=== PATIENT | male | born 1960 | race American Indian/Alaskan Native ===

== ENCOUNTER 2020-02-09 10:05 | Emergency (ER) | payer OTHER ==
--- NOTE | 2020-02-09 11:18 | Event Note ---
ED Screening Note ED Screening Note: dizziness, room spinning began this morning had nausea states broke out in cold sweat no CP worse when lay down no fever PMHx none allergy: penicillin non smoker, non drinker This initial assessment/diagnostic orders/clinical plan/treatment(s) is/are subject to change based on patients health status, clinical progression and re- assessment by fellow clinical providers in the ED. Further treatment and workup at subsequent clinical providers discretion. Patient/guardian urged not to elope from the ED as their condition may be serious if not clinically assessed and managed. Initial orders include: labs, EKG, CT head
[2020-02-09 11:43] LABS: Basophils % (Auto) 0.1 % (0.0-1.8); Eosinophils % (Auto) 0.4 % (0.0-4.3); Hematocrit 45.1 % (35.5-45.6); Hemoglobin 15.1 gm/dl (11.8-15.2); Lymphocytes # (Auto) 1.6 K/mm3 (1.2-5.4); Lymphocytes % (Auto) 19.1 % (13.4-35.0); Mean Corpuscular HGB Conc 34 % (32-34); Mean Corpuscular Volume 92 fl (84-94); Monocytes # (Auto) 0.7 K/mm3 (0.0-0.8); Monocytes % (Auto) 8.3 % (0.0-7.3); Platelet Count 262 K/mm3 (140-440); Red Blood Count 4.88 M/mm3 (3.65-5.03); Red Cell Distribution Width 12.6 % (13.2-15.2)
[2020-02-09] MEDS ORDERED: SODIUM CHLORIDE 0.9% 1000 ML 1,000 ML IV ONE (12:06)
[2020-02-09 12:11] LABS: Alanine Aminotransferase 15 units/L (7-56); Albumin 4.1 g/dL (3.9-5); BUN/Creatinine Ratio 11; Blood Urea Nitrogen 14 mg/dL (9-20); Calcium 9.7 mg/dL (8.4-10.2); Hemolysis Index 14
--- NOTE | 2020-02-09 12:11 | Emergency Department Report ---
ED Dizziness HPI - General Chief Complaint: Dizziness Stated Complaint: COLD SWEATS Time Seen by Provider: 02/09/20 11:16 Source: patient Mode of arrival: Ambulatory Limitations: No Limitations - History of Present Illness Initial Comments: 59-year-old male with no significant past medical history presents to the ER today complaining of feeling dizzy. Patient states that while laying in the bed this morning, he turned over and suddenly started feeling dizzy. He states that he felt that the room was spinning. He states that this happened twice while laying in the bed. Patient states that he then got up and sat on the side of the bed, when he did that his dizziness get better, but then when he started walking, he felt nauseous and did vomit once. And he also had one episode of diarrhea. He states that his stomach felt "bubbly" but denies any pain. He denies any associated chest pain or shortness of breath or headache or vision changes. He denies any URI symptoms or coughing. He denies any urinary symptoms. He denies similar symptoms in past. MD Complaint: dizziness -: Sudden (this morning while laying in bed) Timing: sudden onset Description: "room spinning" History of Same: No History of Trauma: No Severity: moderate Improves With: remaining still Worsens With: movement Associated Symptoms: other (nausea, vomiting x 1 and diarrhea x 1) - Related Data Previous Rx's Medication Instructions Recorded Last Taken Type Fexofenadine/Pseudoephedrine 1 each PO Q12HR #20 tab.er.12h 02/09/20 Unknown Rx [Lyssa-D 12 Hour Tablet] Meclizine [Antivert] 25 mg PO TID PRN #30 tablet 02/09/20 Unknown Rx Ondansetron [Zofran Odt] 4 mg PO Q8HR PRN #12 tab.rapdis 02/09/20 Unknown Rx Allergies Allergy/AdvReac Type Severity Reaction Status Date / Time Penicillins Allergy Anaphylaxis Verified 02/09/20 10:12 ED Review of Systems ROS: Stated complaint: COLD SWEATS Other details as noted in HPI Constitutional: denies: chills, diaphoresis, fever, malaise, weakness Eyes: denies: vision change ENT: denies: ear pain, throat pain, dental pain, hearing loss, epistaxis, congestion Cardiovascular: denies: chest pain, palpitations, dyspnea on exertion, orthopn ea, edema, syncope, paroxysmal nocturnal dyspnea Gastrointestinal: vomiting. denies: nausea, diarrhea, constipation, hematochezia Genitourinary: denies: urgency, dysuria, frequency, hematuria, testicular pain Neurological: vertigo. denies: headache, weakness, numbness, paresthesias, confusion, abnormal gait Psychiatric: denies: homicidal thoughts, suicidal thoughts Hematological/Lymphatic: denies: easy bleeding ED Past Medical Hx - Past Medical History Previous Medical History?: No - Surgical History Past Surgical History?: No - Social History Smoking Status: Never Smoker - Medications Home Medications: Home Medications Medication Instructions Recorded Confirmed Last Taken Type Fexofenadine/Pseudoephedrine 1 each PO Q12HR #20 tab.er.12h 02/09/20 Unknown Rx [Lyssa-D 12 Hour Tablet] Meclizine [Antivert] 25 mg PO TID PRN #30 tablet 02/09/20 Unknown Rx Ondansetron [Zofran Odt] 4 mg PO Q8HR PRN #12 tab.rapdis 02/09/20 Unknown Rx ED Physical Exam - General Limitations: No Limitations General appearance: alert, in no apparent distress - Head Head exam: Present: atraumatic, normocephalic - Eye Eye exam: Present: normal appearance, PERRL, EOMI, nystagmus (mild when looking left ) Pupils: Present: normal accommodation - ENT ENT exam: Present: normal exam, mucous membranes dry (mild) - Neck Neck exam: Present: normal inspection, full ROM. Absent: meningismus - Respiratory Respiratory exam: Present: normal lung sounds bilaterally. Absent: respiratory distress - Cardiovascular Cardiovascular Exam: Present: regular rate, normal rhythm, normal heart sounds - GI/Abdominal GI/Abdominal exam: Present: soft, distended - Extremities Exam Extremities exam: Present: normal inspection, full ROM. Absent: pedal edema - Neurological Exam Neurological exam: Present: alert, oriented X3, CN II-XII intact, normal gait. Absent: motor sensory deficit - Skin Skin exam: Present: intact ED Course Vital Signs 02/09/20 02/09/20 10:17 13:28 Temperature 97.6 F Pulse Rate 86 Pulse Rate [ 81 Lying] Pulse Rate [ 86 Sitting] Respiratory 18 Rate Blood Pressure 142/86 Blood Pressure 136/81 [Lying] Blood Pressure 131/78 [Sitting] O2 Sat by Pulse 99 Oximetry ED Medical Decision Making - Lab Data Result diagrams: 02/09/20 11:29 02/09/20 11:29 - EKG Data EKG shows normal: sinus rhythm Rate: normal - EKG Data Interpretation: normal EKG - Radiology Data Radiology results: report reviewed Ordering Physician: HOWARD ALFARO Date of Service: 02/09/20 Procedure(s): CT head/brain wo con Accession Number(s): [id number] cc: HOWARD ALFARO CT head/brain wo con INDICATION / CLINICAL INFORMATION: 59 years Male; MAIN: dizziness . TECHNIQUE: Routine CT head without contrast. All CT scans at this location are performed using CT dose reduction for ALARA by means of automated exposure control. COMPARISON: None. FINDINGS: BRAIN / INTRACRANIAL CONTENTS: No acute hemorrhage, mass effect, midline shift, hydrocephalus, or acute, large territorial infarct. No chronic infarct or atrophy appreciated. No significant white matter abnormality. CRANIOCERVICAL JUNCTION: No significant abnormality. ORBITS: No significant abnormality of visualized orbits. SINUSES / MASTOIDS: Mild to moderate mucosal thickening seen in the ethmoids. ADDITIONAL FINDINGS: None. IMPRESSION: 1. No focal mass, hemorrhage, hydrocephalus, or acute, large territorial infarct. Signer Name: Rafael Post MD, III Signed: 02/09/2020 12:15 PM Workstation Name: [id number] Transcribed By: Dictated By: Rafael Post MD Electronically Authenticated By: Rafael Post MD Signed Date/Time: 02/09/20 1215 DD/ 1210 TD/TT: - Medical Decision Making 59-year-old male with no significant history presents to the ER today complaining of feeling dizzy which he describes as a spinning sensation with one episode of nausea and one episode of loose stool. Patient reports that the dizziness was worse when he was laying down, but once he stood up and started to move around seem to have improved. He denied any other symptoms. Patient is currently resting comfortably, is in no acute distress, he is awake alert and oriented x3 and neurologically intact. He has a normal gait. He is not orthostatic. EKG does not show anything acute. Head CT normal. Labs reviewed, BS was 131 (pt hasn't eaten for the day) but otherwise unremarkable. Suspect vertigo at this time. No indication for further work up, admission or emergent consultation at this time. Discussed lab and imaging results with patient. R ecommend close f/u with PCP, especially to monitor his BS but he understands if anything worsens to return to ED. Critical care attestation.: If time is entered above; I have spent that time in minutes in the direct care of this critically ill patient, excluding procedure time. ED Disposition Clinical Impression: Vertigo Disposition: DC-01 TO HOME OR SELFCARE Is pt being admited?: No Does the pt Need Aspirin: No Condition: Stable Instructions: Vertigo (ED) Additional Instructions: Recommend you take medication as prescribed. Recommend lots of fluids. Since you have not eating yet and Your blood sugar was 131 today, recommend f/u with PCP for close monitoring of your blood sugar. If anything changes or worsens return to ED. Prescriptions: Fexofenadine/Pseudoephedrine [Lyssa-D 12 Hour Tablet] 1 each PO Q12HR #20 tab.er.12h Meclizine [Antivert] 25 mg PO TID PRN #30 tablet PRN Reason: Vertigo Ondansetron [Zofran Odt] 4 mg PO Q8HR PRN #12 tab.rapdis PRN Reason: Nausea Referrals: PRIMARY CARE, [Primary Care Provider] - 3-5 Days Forms: Work/School Release Form(ED) Time of Disposition: 14:00
--- NOTE | 2020-02-09 12:19 | Cat Scan Report ---
CT head/brain wo con INDICATION / CLINICAL INFORMATION: 59 years Male; MAIN: dizziness . TECHNIQUE: Routine CT head without contrast. All CT scans at this location are performed using CT dos e reduction for ALARA by means of automated exposure control. COMPARISON: None. FINDINGS: BRAIN / INTRACRANIAL CONTENTS: No acute hemorrhage, mass effect, midline shift, hydrocephalus, or acu te, large territorial infarct. No chronic infarct or atrophy appreciated. No significant white matter abnormality. CRANIOCERVICAL JUNCTION: No significant abnormality. ORBITS: No significant abnormality of visualized orbits. SINUSES / MASTOIDS: Mild to moderate mucosal thickening seen in the ethmoids. ADDITIONAL FINDINGS: None. IMPRESSION: 1. No focal mass, hemorrhage, hydrocephalus, or acute, large territorial infarct. Signer Name: Rafael Post MD, III Signed: 02/09/2020 12:15 PM Workstation Name: [id number]
[2020-02-09 14:01] LABS: Bacteria,Urine 1+ /HPF (Negative); Bilirubin,Urine NEG (Negative); Blood,Urine NEG (Negative); Color,Urine Colorless (Yellow); Protein,Urine <15 mg/dL mg/dL (Negative); Urobilinogen,Urine < 2.0 mg/dL (<2.0)
[2020-02-09 14:15] LABS: WBC,Urine < 1.0 /HPF (0.0-6.0)
[2020-02-09 14:59] VITALS: BP 130/81
== END 2020-02-09 14:58 | disposition home or self-care (01) ==
LOC: ED 10:05
DX: R42 Dizziness and giddiness (principal); Z79.899 Other long term (current) drug therapy; Z88.0 Allergy status to penicillin
CPT/HCPCS: 36415; 70450; 80053; 81001; 82550; 83735; 84484; 85025; 93005; 93010; 96360; 99284; J7030

== ENCOUNTER 2021-11-03 01:53 | Emergency (ER) | payer BC, OTHER ==
--- NOTE | 2021-11-03 11:02 | Emergency Department Report ---
Minor Respiratory - HPI Chief Complaint: Fever Stated Complaint: FEVER BEAR Time Seen by Provider: 11/03/21 10:54 Minor Respiratory: Yes Rhinorrhea, Yes Able to Tolerate Fluids, Yes Ear Pain, Yes Cough, Yes Shortness of Breath, Yes Fever, No Sore Throat, No Sick Contacts Other History: Complaint: "I thought I have a sinus infection.". HPI: This is a 61-year-old male without significant past medical history presents with fever cough shortness of breath congestion nasal congestion. He is vaccinated against COVID-19. No known sick contacts. ED Review of Systems ROS: Stated complaint: FEVER BEAR Other details as noted in HPI Constitutional: chills, fever, malaise ENT: throat pain Respiratory: cough, shortness of breath ED Past Medical Hx - Past Medical History Previous Medical History?: No - Surgical History Past Surgical History?: No - Social History Smoking Status: Never Smoker - Medications Home Medications: Home Medications Medication Instructions Recorded Confirmed Last Taken Type Fexofenadine/Pseudoephedrine 1 each PO Q12HR #20 tab.er.12h 02/09/20 Unknown Rx [Lyssa-D 12 Hour Tablet] Meclizine [Antivert] 25 mg PO TID PRN #30 tablet 02/09/20 Unknown Rx Ondansetron [Zofran Odt] 4 mg PO Q8HR PRN #12 tab.rapdis 02/09/20 Unknown Rx Minor Respiratory Exam - Exam General: Vital signs noted. No distress. Alert and acting appropriately. HEENT: Yes Moist Mucous Membranes, No Rhinorrhea, No Conjuctival Injection Neck: Yes Supple, No Adenopathy Lungs: Yes Good Air Exchange, No Wheezes, No Ronchi, No Stridor, No Cough, No Labored Respirations, No Retractions, No Use of Accessory Muscles, No Other Abnormal Lung Sounds Heart: Yes Regular, No Murmur Abdomen: Yes Normal Bowel Sounds, No Tenderness, No Peritoneal Signs Skin: No Rash, No Edema Neurologic: Alert and oriented, no deficits. Musculoskeletal: Unremarkable. ED Course Vital Signs 11/03/21 01:55 Temperature 98.3 F Pulse Rate 108 H Respiratory 18 Rate Blood Pressure 153/107 O2 Sat by Pulse 98 Oximetry ED Medical Decision Making - Medical Decision Making Viral syndrome suspected Covid recommended outpatient Covid testing and supportive care treatment Critical care attestation.: If time is entered above; I have spent that time in minutes in the direct care of this critically ill patient, excluding procedure time. ED Disposition Clinical Impression: Viral syndrome, Suspected 2019 novel coronavirus infection Disposition: HOME / SELF CARE / HOMELESS Is pt being admited?: No Does the pt Need Aspirin: No Condition: Stable Instructions: Viral Illness, Adult Referrals: [facility] [Other] - 3-5 Days
[2021-11-03 11:59] VITALS: BP 155/97
== END 2021-11-03 11:59 | disposition home or self-care (01) ==
LOC: ED 01:53
DX: B34.9 Viral infection, unspecified (principal); R09.81 Nasal congestion; Z20.822 Contact with and (suspected) exposure to COVID-19
CPT/HCPCS: 99282